=== PATIENT | male | born 1995 | race Caucasian/White ===

== ENCOUNTER 2024-04-29 01:18 | Emergency (ER) | payer OTHER, BC, SELFPAY ==
[2024-04-29 01:19] VITALS: BP 125/82; PULSE 66; RESP 18; TEMP 36.1; O2SAT 95; BMI 33.9
--- NOTE | 2024-04-29 01:33 | EX.ED.UPPERE ---
HPI History of Present Illness Chief Complaint: Upper Extremity Injury Narrative Narrative: 28-year-old male presenting with pain in the left ring finger. He states he smashed it between 2 pieces of metal at work yesterday. He states that over the course of the day it has been swelling more but he has been working with it. Patient states he just got off of work and wanted to get it evaluated because it was hurting more. It is bruised at the tip. He states because of the swelling he cannot bend the distal knuckle. Sensation is normal however. [id number]. [facility] Medical History Asthma Home Medications ?Medication ?Instructions ?Recorded ?Last Taken ?Type albuterol sulfate 90 mcg/actuation 2 puff inhalation Q6H PRN PRN 04/29/24 Unknown History aerosol inhaler wheezing cetirizine 10 mg tablet (24Hour 10 mg PO DAILY 04/29/24 Unknown History Allergy) Allergy/AdvReac Type Severity Reaction Status Date / Time No Known Allergies Allergy Verified 04/29/24 01:19 Social History Smoking Status: Current every day smoker tobacco type: e-cigarettes ROS ROS ED Constitutional Constitutional ED: Denies chills, fever(s) or sweats Eyes Eyes: Denies blurry vision or change in vision ENT ENT ED: Denies ear pain or sore throat Cardiovascular Cardiovascular: Denies chest pain, palpitations or racing heartbeat Respiratory/Chest Respiratory/Chest: Denies cough, dyspnea or sputum Gastrointestinal Gastrointestinal: Denies abdominal pain, constipation, diarrhea, nausea or vomiting Genitourinary Genitourinary ED: Denies dysuria, hematuria or urinary frequency Musculoskeletal Musculoskeletal: Reports other Details: Left ring finger pain ; Denies arthralgias, myalgias or neck pain Integumentary Denies abscess, Abrasions or rash Neurologic Neurologic: Denies headache(s), paresthesias or weakness Psychiatric Psychiatric: Denies anxiety, depression, suicidal ideation or suicidal thoughts Endocrine Endocrinology: Denies polydipsia or polyuria EXAM Physical Exam Const Vital Signs: 04/29/24 01:19 Temperature 96.9 F L Temperature Source Temporal Pulse Rate 66 Respiratory Rate 18 Blood Pressure 125/82 H Blood Pressure Mean 96 Pulse Ox 95 Oxygen Delivery Method Room Air Positive well nourished General Appearance ED: NAD HEENT normocephalic and atraumatic Eyes PERRL Resp normal respiratory effort and clear to auscultation bilaterally Auscultation: Negative for rales, rhonchi or wheezes Cardio regular rate and regular rhythm Extremity Extremity Narrative: Left ring finger tender to palpation at the DIP distally. Slightly erythematous. No subungual hematoma. Sensation and motor intact. No obvious deformity. Neuro oriented x3 and CN's II-XII intact bilaterally Sensorium / Orientation: alert Motor Exam: strength 5/5 throughout MDM MDM MDM Narrative Medical decision making narrative: Patient presenting with pain in the left ring finger. It is at the distal end. He is able to bend his finger although it somewhat limited secondary to swelling. No subungual hematoma. Patient declines analgesia he just wants an x-ray to make sure it is not broken. He is filing Worker's Comp. 3 views of the left hand interpreted by myself show a linear distal phalanx fracture of the left ring finger with slight displacement. Patient will be placed in AlumaFoam splint. He will be given follow-up with orthopedics. He was given work restrictions. Return precautions discussed. Impression: 1. Left ring finger distal phalanx fracture Discharge Plan Triage Chief Complaint: Upper Extremity Injury ED Provider: Dwayne Rosenberg Dx/Rx/DC Orders Instructions: ED Fracture, Finger, Closed Prescriptions: No Action albuterol sulfate 90 mcg/actuation HFA aerosol inhaler 2 puff INHALATION Q6H PRN PRN (Reason: wheezing) cetirizine [24Hour Allergy] 10 mg tablet 10 mg PO DAILY Primary Care Provider: Juliana Garcia Referrals: Henry Brandon DO [Med Staff - Active Staff] - 3-5 Days Juliana Garcia MD [Primary Care Provider] - Print Language: [place] Disposition Disposition: Home, Self Care
--- NOTE | 2024-04-29 01:40 | RAD_ITS ---
EXAM: XR LEFT HAND COMPLETE, 3 OR MORE VIEWS CLINICAL INDICATION: pain TECHNIQUE: Frontal, lateral and oblique views of the left hand. COMPARISON: No relevant prior studies available. FINDINGS: BONES/JOINTS: Unremarkable. No acute fracture. No subluxation. Normal alignment. Preservation of the joint space. No sclerotic or destructive changes observed. SOFT TISSUES: Soft tissue swelling involving at least the thenar eminence. No radiopaque foreign body. RAD/Hand Min 3 Views IMPRESSION: Soft tissue swelling involving at least the thenar eminence. No bony abnormality. Electronically Signed: Chente Thorpe MD at 2:05 EDT ,
[2024-04-29 02:22] VITALS: BP 125/71; PULSE 72; RESP 16; TEMP 36.1; O2SAT 97
== END 2024-04-29 02:42 | disposition home or self-care (01) ==
PROVIDERS: Emergency Provider Student in an Organized Health Care Education/Training Program; PCP Internal Medicine; Visit Provider Student in an Organized Health Care Education/Training Program
DX: S62.635A Displaced fracture of distal phalanx of left ring finger, initial encounter for closed fracture (principal); F17.290 Nicotine dependence, other tobacco product, uncomplicated; J45.909 Unspecified asthma, uncomplicated; W31.9XXA Contact with unspecified machinery, initial encounter; Y99.0 Civilian activity done for income or pay
CPT/HCPCS: 73130; 99283